=== PATIENT | female | born 1995 | race Two or more races ===

== ENCOUNTER → 2020-10-06 | Outpatient (CLI) | payer MEDICAID, OTHER, SELFPAY ==
[~2020-10-06] MED LIST: METF500T17 PO; PHEN30CA3 PO
== END | disposition home or self-care (01) ==
LOC: STAR 07:52
PROVIDERS: ATTEND Student in an Organized Health Care Education/Training Program
DX: Z20.822 Contact with and (suspected) exposure to COVID-19 (principal); J03.80 Acute tonsillitis due to other specified organisms
CPT/HCPCS: U0003

== ENCOUNTER 2020-10-12 09:56 | Inpatient (IN) | payer MEDICAID, OTHER, SELFPAY ==
[~2020-10-12] VITALS: Ht 157.5 cm; Wt 107.0 kg
[2020-10-12] MEDS ORDERED: LACTATED RINGERS 1,000 ML IV SCH (10:30)
[2020-10-12] MEDS ORDERED: CHLORHEXIDINE 15 ML UDC PO ONE (10:30)
[2020-10-12] MEDS ORDERED: LIDOCAINE-MPF 1%, 2ML INFIL ONE (10:30)
[2020-10-12 10:53] LABS: HCG UR SG 1.027 (1.003-1.030)
[2020-10-12] MEDS ORDERED: MIDAZOLAM 1 MG/ML, 2ML ONE (11:26)
[2020-10-12] MEDS ORDERED: FENTANYL PF 250 MCG/5ML ONE (11:26)
[2020-10-12] MEDS ORDERED: HALOPERIDOL 5 MG/ML IV PRN (12:00)
[2020-10-12] MEDS ORDERED: ACETAMINOPHEN 325 MG TABLET PO PRN (12:00)
[2020-10-12] MEDS ORDERED: PROMETHAZINE 25 MG/ML, 1ML IVPush PRN (12:00)
[2020-10-12] MEDS ORDERED: LABETALOL 5MG/ML, 20ML IV PRN (12:00)
[2020-10-12] MEDS ORDERED: FENTANYL PF 100 MCG/2ML IV PRN (12:00)
[2020-10-12] MEDS ORDERED: OXYcodone 5 MG/5 ML ORAL.SOL UDC PO PRN (12:00)
[2020-10-12] MEDS ORDERED: HYDROmorphone 1 MG/ML, 1ML INJ IVPush PRN (12:00)
[2020-10-12] MEDS ORDERED: DIPHENHYDRAMINE 50 MG/ML, 1ML IVPush PRN (12:00)
[2020-10-12] MEDS ORDERED: MEPERIDINE/PF 25MG/0.5ML IVPush PRN (12:00)
[2020-10-12] MEDS ORDERED: hydrALAzine 20 MG/ML, 1ML IV PRN ×2 (12:00→13:00)
[2020-10-12] MEDS ORDERED: ROCURONIUM 10MG/ML,5ML ONE (12:42)
[2020-10-12] MEDS ORDERED: ONDANSETRON 2MG/ML, 2ML ONE (12:42)
[2020-10-12] MEDS ORDERED: DEXAMETHASONE 4 MG/ML, 1ML ONE (12:42)
[2020-10-12] MEDS ORDERED: GLYCOPYRROLATE 0.2MG/1ML, 5ML ONE (12:42)
[2020-10-12] MEDS ORDERED: CEFAZOLIN 1,000 MG ONE (12:42)
[2020-10-12] MEDS ORDERED: NEOSTIGMINE 1 MG/ML, 10ML ONE (12:42)
[2020-10-12] MEDS ORDERED: SUCCINYLCHOLINE 20 MG/ML, 10ML ONE (12:42)
[2020-10-12] MEDS ORDERED: PROPOFOL 10 MG/ML, 20ML ONE (12:42)
[2020-10-12] MEDS ORDERED: PROMETHAZINE 25 MG/ML, 1ML ONE (12:50)
[2020-10-12] MEDS ORDERED: DIPHENHYDRAMINE 25 MG CAPSULE PO PRN (13:00)
[2020-10-12] MEDS ORDERED: MORPHINE SULFATE 4 MG/ML, 1ML IVPush PRN (13:00)
[2020-10-12] MEDS ORDERED: FENTANYL PF 100 MCG/2ML ONE (13:00)
[2020-10-12] MEDS ORDERED: ONDANSETRON 2MG/ML, 2ML IVPush PRN (13:00)
[2020-10-12] MEDS ORDERED: ACETAMINOPHEN 650 MG/20.3 ML UDC PO PRN (13:00)
[2020-10-12 14:45] VITALS: BP 130/89
[2020-10-12] MEDS: POTASSIUM CHLORIDE 20 MEQ in D5%-0.45% NACL 1,000 ML IV SCH (15:37)
[2020-10-12] MEDS: IBUPROFEN 600 MG TABLET PO PRN (16:08)
[2020-10-12] MEDS: metFORMIN 500 MG TABLET PO SCH (16:52)
[2020-10-12] MEDS: HYDROcodone/APAP 7.5-325MG/15ML UDC PO PRN (19:38)
[2020-10-12 20:19] VITALS: BP 111/74
[2020-10-13 00:09] VITALS: BP 127/83
[2020-10-13] MEDS: HYDROcodone/APAP 7.5-325MG/15ML UDC PO PRN ×2 (00:33→06:18)
[2020-10-13] MEDS: POTASSIUM CHLORIDE 20 MEQ in D5%-0.45% NACL 1,000 ML IV SCH (02:37)
[2020-10-13] MEDS: IBUPROFEN 600 MG TABLET PO PRN (03:37)
[2020-10-13 03:40] VITALS: BP 122/70
[2020-10-13] MEDS ORDERED: DEXAMETHASONE 4 MG/ML, 1ML IVPush ONE (06:00)
[2020-10-13] MEDS ORDERED: DEXAMETHASONE 4 MG/ML, 5ML IVPush ONE (06:00)
[2020-10-13 06:20] VITALS: BP 130/81
[2020-10-13] MEDS ORDERED: HYDR15SO3 PO (07:24)
[2020-10-13] MEDS: metFORMIN 500 MG TABLET PO SCH (07:49)
== END 2020-10-13 09:00 | disposition home or self-care (01) | DRG 145 ==
LOC: OUT 09:56 → 4NE 12:49 → OUT 14:18
PROVIDERS: ADMIT Student in an Organized Health Care Education/Training Program; ATTEND Student in an Organized Health Care Education/Training Program
PROC: 0CTPXZZ Resection of Tonsils, External Approach (ICD-10-PCS; principal; 2020-10-12 12:00)
DX: J35.03 Chronic tonsillitis and adenoiditis (principal); G47.33 Obstructive sleep apnea (adult) (pediatric); J35.8 Other chronic diseases of tonsils and adenoids; E28.2 Polycystic ovarian syndrome
CPT/HCPCS: 81025; 82962; 88304; G0378; J0690; J1100; J2250; J2405; J2550; J2704; J2710; J3010; J3480; J0330; J7120